=== PATIENT | male | born 1950 | race Caucasian/White ===

== ENCOUNTER 2022-09-29 11:10 | Emergency (ER) | payer MEDICARE, BC ==
[~2022-09-29] VITALS: Ht 162.6 cm; Wt 90.7 kg
[~2022-09-29 11:10] MED LIST: VALS160T2 PO
[2022-09-29 11:35] VITALS: BP 155/73
[2022-09-29] MEDS ORDERED: CYCL5TAB PO (12:37)
[2022-09-29] MEDS ORDERED: IBUP-1955 PO (12:37)
--- NOTE | 2022-09-29 12:41 | NUR ---
Patient discharged to home in stable condition. Written and verbal after care instructions given. Patient verbalizes understanding of instruction.
== END 2022-09-29 12:42 | disposition home or self-care (01) ==
LOC: EDSEX 11:21 → ER 11:21
DX: S20.211A Contusion of right front wall of thorax, initial encounter (principal); I10 Essential (primary) hypertension; Z79.899 Other long term (current) drug therapy; W22.8XXA Striking against or struck by other objects, initial encounter; Y93.89 Activity, other specified; Y92.89 Other specified places as the place of occurrence of the external cause; Y99.8 Other external cause status
CPT/HCPCS: 71100-TC